=== PATIENT | female | born 2000 | race Caucasian/White ===

== ENCOUNTER 2022-12-27 12:43 | Emergency (ER) | payer OTHER, SELFPAY ==
--- NOTE | 2022-12-27 12:54 | ED.EYEPROB ---
HPI - Eye Problem General Chief complaint: Eye Problems Stated complaint: SWOLLEN EYE Time Seen by Provider: 12/27/22 12:54 Source: patient Mode of arrival: ambulatory Limitations: no limitations History of Present Illness HPI Narrative: 22-year-old female presents with nasal congestion, sinus pain and pressure, postnasal drainage, sore throat for the past month. States that symptoms started when ?allergies started ?. Taking Zyrtec daily. Afebrile. Reports she started to have right eye redness, drainage 2 days ago. Also reports swelling and skin irritation to right upper eyelid. No vision changes. States she does intermittently use false eyelashes, none recently. Left systems reviewed and negative except as noted. Related Data Allergies Allergy/AdvReac Type Severity Reaction Status Date / Time No Known Allergies Allergy Verified 10/12/18 16:13 Review of Systems Review of Systems: CONSTITUTIONAL: Denies fever, chills, or sweats. EYES: Denies visual changes. Reports redness and discharge right eye. ENT: Reports rhinorrhea, congestion, sore throat, bilateral ear pressure. CARDIOVASCULAR: Denies chest pain, palpitations, or edema. RESPIRATORY: Denies cough or dyspnea. GASTROINTESTINAL: Denies abdominal pain, nausea, vomiting, or diarrhea. GENITOURINARY: Denies dysuria or hematuria. SKIN: Denies rash or itching. MUSCULOSKELETAL: Denies back pain, joint pain, or myalgia. NEUROLOGIC: Denies headache, numbness, or weakness. PSYCHIATRIC: Denies anxiety or depression. All other systems reviewed are negative, except as documented in HPI. PMFSH Comments At time of signature, agree with nursing past medical, surgical, social and family history. There is no relevant family history pertinent to the presenting complaint. Exam Narrative: GENERAL: This is a well-nourished, well-developed patient, in no apparent distress. HEAD: normocephalic, atraumatic. EYES: PERRL. Sclera and conjunctiva right eye erythematous. Right upper eyelid is mildly swollen with redness and dry skin. Left eye normal. vision is grossly intact. EARS: External ears normal, auditory canals clear and without drainage, fluid bilateral TMs, dull light reflex. No erythema or perforation. NOSE: External nose normal with erythema and swelling to both nares, purulent nasal drainage. Bilateral frontal and maxillary sinus tenderness. THROAT: Mucous membranes moist, postnasal drainage with erythema to posterior pharynx. No tonsillar exudate or swelling. NECK: Neck supple, non-tender without lymphadenopathy, masses or thyromegaly. CARDIOVASCULAR: Regular rate and rhythm without murmurs, gallops, or rubs. RESPIRATORY: Clear to auscultation. Breath sounds equal bilaterally. No wheezes, rales, or rhonchi. SKIN: warm, Dry, intact with no suspicious lesions or rash, good texture and turgor. NEURO: awake, alert, and oriented to person, place and time. There were no obvious focal neurologic abnormalities. EXTREMITIES: No joint tenderness, effusion, or edema noted. Course Course Level of Care: Express Care Visit Vital Signs Vital signs: Reviewed MDM - Eye Problem MDM Narrative Medical decision making narrative: Patient is aware of diagnosis, understands and agrees to treatment plan. Anticipatory guidance given. Patient agrees to follow-up as directed and is aware of reasons to seek care at the emergency department. Portions of this record may have been created with voice recognition software Differential Diagnosis Differential diagnosis: Likely conjunctivitis Discharge Plan Discharge Clinical Impression: Acute bacterial sinusitis, Acute bacterial conjunctivitis of right eye, Eczema of eyelid, right Patient Disposition: Home, Self-Care Condition: Stable Instructions: Antibiotic Form, Conjunctivitis (ED) Additional Instructions: Take medications as prescribed. Wash hands before and after placing antibiotic eye drop. Apply steroid cream to right
[2022-12-27 12:58] VITALS: BP 116/76; PULSE 68; RESP 16; TEMP 36.8; O2SAT 100
== END 2022-12-27 13:16 | disposition home or self-care (01) ==
PROVIDERS: Emergency Provider Nurse Practitioner Family; PCP Family Medicine Sports Medicine
DX: J01.90 Acute sinusitis, unspecified (principal); H10.31 Unspecified acute conjunctivitis, right eye; L30.9 Dermatitis, unspecified
CPT/HCPCS: 99203; G0463